=== PATIENT | female | born 1995 | race Two or more races ===

== ENCOUNTER 2020-09-19 21:30 | Emergency (ER) | payer OTHER ==
[2020-09-19 21:37] VITALS: BP 98/66; PULSE 81; TEMP 98; BMI 18.8
[2020-09-19] MEDS ORDERED: LIDOCAINE VISCOUS 2% ORAL/TOP 15 ML UNIT-DOSE CUP MM ONE (22:03)
[2020-09-19] MEDS ORDERED: ACETAMINOPHEN 500 MG TABLET (FP) PO ONE (22:03)
[2020-09-19] MEDS ORDERED: DEXAMETHASONE 4 MG TABLET (FP) PO ONE (22:15)
[2020-09-19] MEDS ORDERED: LIDOCAINE VISCOUS 2% ORAL/TOP 15 ML UNIT-DOSE CUP ONE (22:25)
[2020-09-19] MEDS ORDERED: ACETAMINOPHEN 325 MG TABLET (FP) ONE (22:25)
[2020-09-19] MEDS ORDERED: DEXAMETHASONE SOD PHOSPHATE 10 MG/1 ML VIAL ONE (22:25)
== END 2020-09-19 23:13 | disposition home or self-care (01) ==
LOC: JERFT 21:30
DX: R07.0 Pain in throat (principal)
CPT/HCPCS: 99283-25; C9803; U0003; U0005